=== PATIENT | female | born 1990 | race Caucasian/White ===

== ENCOUNTER → 2017-03-19 | Outpatient (CLI) | payer OTHER ==
[~2017-03-19] MED LIST: PYR50 PO; RMCI INJ
== END | disposition home or self-care (01) ==
LOC: C.MAMM 14:45
PROVIDERS: ATTEND Internal Medicine Gastroenterology
DX: Z79.51 Long term (current) use of inhaled steroids (principal); Z79.52 Long term (current) use of systemic steroids; K50.80 Crohn's disease of both small and large intestine without complications; M25.569 Pain in unspecified knee

== ENCOUNTER 2017-05-13 23:35 | Inpatient (IN) | payer OTHER ==
[~2017-05-13] VITALS: Ht 157.5 cm; Wt 61.2 kg
[2017-05-13] MEDS ORDERED: ONDANSETRON INJ 2 MG/ML 2 ML VIAL IV STA (23:59)
[2017-05-13] MEDS ORDERED: SODIUM CHLORIDE 0.9% 1000ML 1,000 ML IV STA ×2 (23:59)
[2017-05-14 00:20] LABS: BASO % 0.4 %; BASO ABS # 0.04 K/uL (0-0.2); COMPLETE YES; EOS % 3.6 %; HEMATOCRIT 36.2 % (37-47); IG% 0.3 %; LYMPH % 31.7 %; MEAN CELL VOLUME 76.9 fL (80-100); MEAN CORPUSCULAR HEMOGLOBIN 24.4 pg (25-34); MEAN CORPUSCULAR HGB CONC 31.8 g/dl (32-36); MEAN PLATELET VOLUME 10.2 fL (7.4-10.4); MONO % 6.4 %; NEUT % 57.6 %; PLATELET COUNT 421 K/uL (130-400); RED BLOOD COUNT 4.71 M/uL (4.2-5.4); WHITE BLOOD COUNT 10.73 K/uL (4.8-10.8)
[2017-05-14 00:40] LABS: URINE APPEARANCE CLEAR (CLEAR); URINE BILIRUBIN NEG (NEG); URINE COLOR YELLOW; URINE NITRITE NEG (NEG); URINE PH 5.5 (4.5-7.5); URINE SPECIFIC GRAVITY 1.021 (1.000-1.030); UROBILINOGEN NEG (NEG); ZZUR CULT IF INDIC CLEAN CATCH NO
[2017-05-14 00:48] LABS: MANUAL MICROSCOPIC REQUIRED? NO; REVIEW REQ? NO
[2017-05-14] MEDS ORDERED: DICYCLOMINE HCL 20 MG TAB PO STA (00:49)
[2017-05-14 00:52] LABS: ALT/SGPT 29 U/L (12-78); AST/SGOT 20 U/L (15-37); BLOOD UREA NITROGEN 13 mg/dl (7-18); BUN/CREATININE RATIO 21.2 (10-20); CALCIUM 9.4 mg/dl (8.5-10.1); CARBON DIOXIDE 26 mmol/L (21-32); CHLORIDE 105 mmol/L (98-107); CREATININE 0.61 mg/dl (0.60-1.20); GLUCOSE 86 mg/dl (70-99); POTASSIUM 3.7 mmol/L (3.5-5.1); SODIUM 138 mmol/L (136-145)
[2017-05-14 00:55] LABS: ALKALINE PHOSPHATASE 62 U/L (45-117)
--- NOTE | 2017-05-14 01:18 | EMERGENCY ROOM VISIT NOTE ---
History Report prepared by Bassam: Miguel Carpenter Under the Supervision of: Dr. Reji Garcia M.D. First contact with patient: 23:57 Chief Complaint: NAUSEA Stated Complaint: NAUSEA,VOMITING,DIARRHEA History of Present Illness The patient is a 26 year old white female with a past medical history of Crohn' s disease who presents to the ED with a cc of persistent nausea, vomiting and diarrhea beginning a few days ago. She is 5-6 weeks . Positive abdominal pain. Negative black or bloody stool, fevers, chills, or leg swelling. Most recent colonoscopy was a few months ago. Notes that she is high risk for ectopic due to her previous abdominal surgeries. Most recent ultrasound was last week which revealed a gestational sac. On Remicade and Prednisone for her Crohn's disease. This is her third , though the first two were a result of chemical insemination. Denies any falls or trauma. Her LNMP was April 04. Source of History: patient Onset: A few days ago Quality: other (nausea, vomiting and diarrhea) Timing: other (persistent) Associated Symptoms: + abdominal pain, No fevers, No chills, No melena, No hematochezia Note: Negative: leg swelling. Review of Systems See HPI for pertinent positives and negatives. A total of ten systems were reviewed and were otherwise negative. Past Medical & Surgical Medical Problems: (1) Crohn's disease Family History No pertinent family history. Social History Smoking Status: Never Smoker Marital Status: Current/Historical Medications Scheduled Infliximab (Remicade), 1 DOSE INJ q 8 weeks Allergies Coded Allergies: No Known Allergies (Unverified , 05/13/17) Physical Exam Vital Signs Date Time Temp Pulse Resp B/P (MAP) Pulse Ox O2 Delivery O2 Flow Rate FiO2 05/14/17 00:21 74 05/13/17 23:53 37.0 81 18 119/80 100 Room Air Physical Exam GENERAL: Awake, alert, well-appearing, NAD HENT: Normocephalic, atraumatic. EYES: Normal conjunctiva. Sclera non-icteric. NECK: Supple. No nuchal rigidity. FROM. RESPIRATORY: CTAB, no rhonchi, wheezing, crackles CARDIAC: RRR, no MRG ABDOMEN: Soft, NTND, BS+. Trace LLQ TTP. MSK: No chest wall TTP, no LE edema NEURO: GCS 15, CN 2-12 intact, moves all 4s on command SKIN: No rash or jaundice noted. Medical Decision & Procedures Laboratory Results 05/14/17 00:05 Red Blood Count 4.71, Mean Corpuscular Volume 76.9, Mean Corpuscular Hemoglobin 24.4, Mean Corpuscular Hemoglobin Concent 31.8, Mean Platelet Volume 10.2, Neutrophils (%) (Auto) 57.6, Lymphocytes (%) (Auto) 31.7, Monocytes (%) (Auto) 6.4, Eosinophils (%) (Auto) 3.6, Basophils (%) (Auto) 0.4, Neutrophils # (Auto) 6.18, Lymphocytes # (Auto) 3.40, Monocytes # (Auto) 0.69, Eosinophils # (Auto) 0.39, Basophils # (Auto) 0.04 05/14/17 00:05 Test 05/14/17 00:05 05/14/17 00:13 White Blood Count 10.73 K/uL (4.8-10.8) Red Blood Count 4.71 M/uL (4.2-5.4) Hemoglobin 11.5 g/dL (12.0-16.0) Hematocrit 36.2 % (37-47) Mean Corpuscular Volume 76.9 fL (80-100) Mean Corpuscular Hemoglobin 24.4 pg (25-34) Mean Corpuscular Hemoglobin Concent 31.8 g/dl (32-36) Platelet Count 421 K/uL (130-400) Mean Platelet Volume 10.2 fL (7.4-10.4) Neutrophils (%) (Auto) 57.6 % Lymphocytes (%) (Auto) 31.7 % Monocytes (%) (Auto) 6.4 % Eosinophils (%) (Auto) 3.6 % Basophils (%) (Auto) 0.4 % Neutrophils # (Auto) 6.18 K/uL (1.4-6.5) Lymphocytes # (Auto) 3.40 K/uL (1.2-3.4) Monocytes # (Auto) 0.69 K/uL (0.11-0.59) Eosinophils # (Auto) 0.39 K/uL (0-0.5) Basophils # (Auto) 0.04 K/uL (0-0.2) RDW Standard Deviation 42.4 fL (36.4-46.3) RDW Coefficient of Variation 15.0 % (11.5-14.5) Immature Granulocyte % (Auto) 0.3 % Immature Granulocyte # (Auto) 0.03 K/uL (0.00-0.02) Anion Gap 7.0 mmol/L (3-11) Est Creatinine Clear Calc Drug Dose 121.4 ml/min Estimated GFR () 146.0 Estimated GFR (Non- 126.0 BUN/Creatinine Ratio 21.2 (10-20) Calcium Level 9.4 mg/dl (8.5-10.1) Total Bilirubin 0.3 mg/dl (0.2-1) Direct Bilirubin < 0.1 mg/dl (0-0.2) Aspartate Amino Transf (AST/SGOT) 20 U/L (15-37) Alanine Aminotransferase (ALT/SGPT) 29 U/L (12-78) Alkaline Phosphatase 62 U/L (45-117) Total Protein 7.7 gm/dl (6.4-8.2) Albumin 3.8 gm/dl (3.4-5.0) Lipase 2279 U/L (73-393) Human Chorionic Gonadotropin, Quant 5988 mIU/mL Urine Color YELLOW Urine Appearance CLEAR (CLEAR) Urine pH 5.5 (4.5-7.5) Urine Specific [place] 1.021 (1.000-1.030) Urine Protein NEG (NEG) Urine Glucose (UA) NEG (NEG) Urine Ketones NEG (NEG) Urine Occult Blood NEG (NEG) Urine Nitrite NEG (NEG) Urine Bilirubin NEG (NEG) Urine Urobilinogen NEG (NEG) Urine Leukocyte Esterase NEG (NEG) Laboratory results reviewed by me Medications Administered Medications (Trade) Dose Ordered Sig/Renu Route Start Time Stop Time Status Last Admin Dose Admin Sodium Chloride 1,000 ml @ 999 mls/hr Q1H1M STAT IV 05/13/17 23:59 05/14/17 00:59 DC 05/13/17 23:59 999 MLS/HR Ondansetron HCl (Zofran Inj) 4 mg NOW STAT IV 05/13/17 23:59 05/14/17 00:02 DC 05/14/17 00:22 4 MG Sodium Chloride 1,000 ml @ 999 mls/hr Q1H1M STAT IV 05/13/17 23:59 05/14/17 00:59 DC 05/14/17 00:08 999 MLS/HR ED Course 0004: The patient was evaluated in room B10. A complete history and physical exam was performed. 0115: Upon reexamination, the patient was resting comfortably. I discussed the test results and treatment plan with her. The patient will be evaluated for further management. Medical Decision The patient is a 26 year old white female with a past medical history of Crohn' s disease who presents to the ED with a cc of persistent nausea, vomiting and diarrhea beginning a few days ago. Differential diagnosis: Crohn's flare, gastritis, gastroenteritis, hyperemesis gravidarum, sickness in first trimester , pancreatitis, hepatitis, UTI and dehydration. Patient was seen and evaluated at the bedside. Patient had been having decreasing by mouth intake with associated nausea vomiting and diarrhea. Patient does state that she has a history of Crohn's and had a recent colonoscopy which showed some inflammation of the small bowel. Patient is on Remicade infusions. Patient denies any recent travel, antibiotics, sick contacts, stream or well water. Of note patient is 5 weeks 5 days by LMP and . Patient has had 2 other failed pregnancies prior and has been told that she is at high risk for ectopic. Patient did have more localized left lower quadrant tenderness palpation. Denies vaginal bleeding, d/c, or urinary symptoms/LBP. Patient states that she has no blood in her diarrhea. Patient was given antimanic treatment in addition to having a you've a, blood work, and transvaginal ultrasound. Of note patient did have elevated lipase greater than 20/200 without any elevations in LFTs. Patient does not have pain in the right upper quadrant. Patient is no prior history of pancreatitis and denies any alcohol use, recent steroids, or history of gallstones. I spoke with the medicine team who agreed to see the patient. A right upper quadrant ultrasound was ordered at this time. I also did call BILLING ANALYST who agreed to be on as consult given the patient is . Medication Reconcilliation Current Medication List: was personally reviewed by me Blood Pressure Screening Patient's blood pressure: Normal blood pressure Blood pressure disposition: Did not require urgent referral Consults Time Called: 010 Consulting Physician: Dr. Kaelyn DSOUZA Returned Call: 011 Discussed the patient's case. The patient will be evaluated for further treatment and disposition. Additional Consults: Consulted Physician: Dr. Rosenberg - [facility] [place] Primary Impression: Pancreatitis Additional Impressions: First trimester Nausea & vomiting Scribe Attestation The scribe's documentation has been prepared under my direction and personally reviewed by me in its entirety. I confirm that the note above accurately reflects all work, treatment, procedures, and medical decision making performed by me. Departure Information Dispostion Being Evaluated By Hospitalist Referrals No Doctor, Assigned (PCP) Patient Instructions My [facility] Problem Qualifiers Primary Impression: Pancreatitis Chronicity: acute Pancreatitis type: unspecified pancreatitis type Acute pancreatitis complication: unspecified Qualified Codes: K85.90 - Acute pancreatitis without necrosis or infection, unspecified Additional Impressions: Nausea & vomiting Vomiting type: unspecified Vomiting Intractability: non-intractable Qualified Codes: R11.2 - Nausea with vomiting, unspecified
[2017-05-14] MEDS ORDERED: RMCI INJ (01:26)
--- NOTE | 2017-05-14 01:58 | History and Physical ---
History & Physical Date & Time of Service: May 14, 2017 at 01:46 Chief Complaint: Nausea,Vomiting,Diarrhea Primary Care Physician: No Doctor, Assigned History of Present Illness Source: patient, spouse The patient is a pleasant 26 year old female with a history of Crohn's disease and previous colonic resection who presents with. Nausea, vomiting, diarrhea and abdominal pain. Nausea and vomiting started 4-5 days ago. It occurs intermittently at any time during the day. Today, she was unable to keep food down all day today. She reports she has diarrhea at baseline but feels that past 4 days, her stools are getting progressively looser. No blood or mucus in the stool. This is not typical of her flares of Crohn's. Has baseline grade abdominal pain, intermittent in the LLQ, crampy/sharp, comes in waves, 1/10. She assumes the pain is Crohn's related but feels it may be a only a mild flare. She also complains of heartburn and epigastric discomfort pain 4/10, which is new for her and not usually accompanied by her flares of Crohn's Was in the ER in [facility] last week due to pain a worse sharp pain the inguinal area, sharp, /. US done there show intrauterine gestational sac. This pain is now resolved Has a history of 2 previous abdominal surgeries and states she is a high risk for ectopic She denies fevers chills or sweats. Had a good appetite 2 weeks ago but her appetite has been poor for the past week due to increasing nausea. Patients flares typically consist of fatigue, severe lower abdominal pain, nausea/vomiting, high fevers, weight loss. Her current symptoms do not feel like a flare. Has appointment in [address] Sykes. She had an appointment last week with Dr. Roque who follows her Crohn's but she missed it She notes she had a colonoscopy in March, which she notes indicated mild active disease though the location of active disease is unclear. She gets Remicade infusions every 8 weeks, last infusion was in the middle of March. She is unsure of the plan for her Remicade infusions. She reports having taken a home test 2 weeks ago which was positive. Her LMP was April 04. She reports having a chemical in January and since then her periods have been 29 days and 34 days respectively. Prior to that, she had menarche and her periods have been regular 28 day cycles. Past Medical/Surgical History Medical History Crohn's Disease with sequelae Uveitis Eczema Murmur as a child Surgeries - Colon resection in 2005, ascending/transverse 18" - Colon resection in 2011, ascending/transverse 7" Family History Noncontributory Social History Smoking Status: Never Smoker Smokeless Tobacco Use: No Alcohol Use: none Drug Use: none Marital Status: Housing status: lives with significant other Occupational Status: employed Immunizations History of Influenza Vaccine: Unknown History of Tetanus Vaccine?: Unknown History of Pneumococcal: Unknown History of Hepatitis B Vaccine: Unknown Multi-Drug Resistant Organisms History of MDRO: No Allergies Coded Allergies: No Known Allergies (Unverified , 05/13/17) Home Medications Scheduled Infliximab (Remicade), 1 DOSE INJ q 8 weeks Review of Systems A 10 point review of systems was negative unless stated above. Physical Exam Vital Signs Date Time Temp Pulse Resp B/P (MAP) Pulse Ox O2 Delivery O2 Flow Rate FiO2 05/14/17 00:21 74 05/13/17 23:53 37.0 81 18 119/80 100 Room Air General Appearance: WD/WN, no apparent distress Head: normocephalic, atraumatic Eyes: normal inspection, EOMI ENT: hearing grossly normal, pharynx normal Neck: supple, no adenopathy, no JVD Respiratory/Chest: lungs clear, no respiratory distress Cardiovascular: regular rate, rhythm, no gallop, no murmur Abdomen/GI: soft, no organomegaly, + pertinent finding (tender in the LLQ and left anterior abdomen without guarding or rigidity; 2 well healed surgical scars ) Back: no CVA tenderness, no muscle spasm Extremities/Musculoskelatal: no calf tenderness, no pedal edema Neurologic/Psych: alert, normal mood/affect, oriented x 3 Skin: normal color, warm/dry, no rash Lymphatic: no adenopathy Diagnostics Laboratory Results Results Past 24 Hours Test 05/14/17 00:05 05/14/17 00:13 Range/Units White Blood Count 10.73 4.8-10.8 K/uL Red Blood Count 4.71 4.2-5.4 M/uL Hemoglobin 11.5 12.0-16.0 g/dL Hematocrit 36.2 37-47 % Mean Corpuscular Volume 76.9 80-100 fL Mean Corpuscular Hemoglobin 24.4 25-34 pg Mean Corpuscular Hemoglobin Concent 31.8 32-36 g/dl Platelet Count 421 130-400 K/uL Mean Platelet Volume 10.2 7.4-10.4 fL Neutrophils (%) (Auto) 57.6 % Lymphocytes (%) (Auto) 31.7 % Monocytes (%) (Auto) 6.4 % Eosinophils (%) (Auto) 3.6 % Basophils (%) (Auto) 0.4 % Neutrophils # (Auto) 6.18 1.4-6.5 K/uL Lymphocytes # (Auto) 3.40 1.2-3.4 K/uL Monocytes # (Auto) 0.69 0.11-0.59 K/uL Eosinophils # (Auto) 0.39 0-0.5 K/uL Basophils # (Auto) 0.04 0-0.2 K/uL RDW Standard Deviation 42.4 36.4-46.3 fL RDW Coefficient of Variation 15.0 11.5-14.5 % Immature Granulocyte % (Auto) 0.3 % Immature Granulocyte # (Auto) 0.03 0.00-0.02 K/uL Sodium Level 138 136-145 mmol/L Potassium Level 3.7 3.5-5.1 mmol/L Chloride Level 105 98-107 mmol/L Carbon Dioxide Level 26 21-32 mmol/L Anion Gap 7.0 3-11 mmol/L Blood Urea Nitrogen 13 7-18 mg/dl Creatinine 0.61 0.60-1.20 mg/dl Est Creatinine Clear Calc Drug Dose 121.4 ml/min Estimated GFR () 146.0 Estimated GFR (Non- 126.0 BUN/Creatinine Ratio 21.2 10-20 Random Glucose 86 70-99 mg/dl Calcium Level 9.4 8.5-10.1 mg/dl Total Bilirubin 0.3 0.2-1 mg/dl Direct Bilirubin < 0.1 0-0.2 mg/dl Aspartate Amino Transf (AST/SGOT) 20 15-37 U/L Alanine Aminotransferase (ALT/SGPT) 29 12-78 U/L Alkaline Phosphatase 62 45-117 U/L Total Protein 7.7 6.4-8.2 gm/dl Albumin 3.8 3.4-5.0 gm/dl Lipase 2279 73-393 U/L Human Chorionic Gonadotropin, Quant 5988 mIU/mL Urine Color YELLOW Urine Appearance CLEAR CLEAR Urine pH 5.5 4.5-7.5 Urine Specific [place] 1.021 1.000-1.030 Urine Protein NEG NEG Urine Glucose (UA) NEG NEG Urine Ketones NEG NEG Urine Occult Blood NEG NEG Urine Nitrite NEG NEG Urine Bilirubin NEG NEG Urine Urobilinogen NEG NEG Urine Leukocyte Esterase NEG NEG Impression Assessment and Plan 26 year old female, at estimated 5 weeks gestation based on quantitative beta HCG in the ED, who presents with nausea/vomiting and abdominal discomfort. Lipase in the ED was elevated. No CT scan has been due risk of exposure to fetus. Patient has a history of Crohn's with colectomy. Our plan for her is as follows Nausea/Vomiting Abdominal pain - DDx: Acute Crohn's exacerbation, gastro-enteritis, ectopic , pancreatitis - Lipase elevated; no CT scan abdomen done to limit radiation exposure to fetus - Zofran given in the ED; will try alternate modality at this time Pyridoxine 25 mg TID PRN Diclectin not available in the hospital - Complete abdomen ultrasound with attention to pancreas and RUQ - Tylenol 650 mg q 6 h PRN pain; avoid opiates - NSS + 20 KCl at 100 ml/hr - NPO First Trimester - High risk due to history of autoimmune disease, and previous intra-abdominal surgery - Consult cardiology clinical consultant in the setting of acute presumed pancreatitis - Dating U/S pending History of Crohn's Disease - Check inflammatory markers as marker of active disease - Patient is only on Remicade infusions - Consult GI for further recommendations DVT Prophylaxis - SCD Knee, DESHAWN Hose Code Status - Level I Full Code Disposition - Med/Surg Attending Addendum: I have physically seen and examined this patient, have directed the resident's medical activities, and agree with the H&P as noted above with the following exceptions as noted. The patient is awake, alert and oriented 3, well-developed and well-nourished , normocephalic and atraumatic, lying in bed and in no acute distress. HEENT--PERRL, EOMI, mucous membranes and oropharynx dry. Neck--supple, no JVD or bruits, thyroid normal, trachea midline, no adenopathy. Heart--normal S1 and S2, no extra beats, no murmurs, rubs or gallops. Lungs--clear bilaterally with good air movement, no respiratory distress, no accessory muscle use. Abdomen--normal bowel sounds and soft. Tender left lower quadrant abdomen. Nondistended, no hernias or masses, no organomegaly. Extremities--no cyanosis, clubbing or edema. There are good distal pulses b/l. Dermatologic--normal skin turgor, normal color, warm and dry, no abnormal lymph nodes, no rash. Neurologic--cranial nerves II through XII grossly intact. Rheumatologic--normal range of motion, nontender, muscles and joints. Psychiatric--normal affect. Assessment and Plan: Nausea/vomiting/abdominal pain/first trimester -- Admit to the women and children's service. Order general abdominal ultrasound and ultrasound. Elevated lipase with differential including pancreatitis, Crohn's flare and ectopic . Normal saline with KCl 20 mEq at 100 mils per hour. For now nothing by mouth. Consult REPAIR E[employer]SEMBLER Dr. Rosenberg, who is covering for Dr. Sykes. History of Crohn's disease-- Consult her surgical dressing maker Dr. Roque.. She is on Remicade IV infusion as an outpatient setting. Level of Care Med/Surg Advanced Directives Existing Advance Directive: No Existing Living Will: No Existing Power of Medical Representative: No Resuscitation Status FULL RESUSCITATION VTE Prophylaxis Risk Level: Moderate Given or contraindicated: Ale Tyler, SCD's Social Service Consult None Apply
[2017-05-14] MEDS ORDERED: ACETAMINOPHEN 325 MG TAB PO PRN (02:30)
[2017-05-14] MEDS ORDERED: MAGNESIUM HYDROXIDE SUSP 30 ML UDC PO PRN (02:30)
[2017-05-14] MEDS ORDERED: ALUMINUM/MAGNESIUM/SIMETH (MAALOX MAX) 30 ML UDC PO PRN (02:30)
[2017-05-14 03:32] VITALS: BP 98/60; PULSE 76; TEMP 37.1; O2SAT 99; Ht 157.5 cm; Wt 61.2 kg
[2017-05-14] MEDS ORDERED: PYRIDOXINE HCL 50 MG TAB PO ONE (03:43)
[2017-05-14] MEDS ORDERED: PYRIDOXINE HCL 50 MG TAB PO PRN (03:45)
[2017-05-14] MEDS: NSS + 20MEQ KCL 1000ML 1,000 ML IV SCH ×3 (03:48→23:00)
[2017-05-14] MEDS: ACETAMINOPHEN IV 650 MG in EMPTY BAG 0 ML IV PRN ×2 (05:40→22:20)
--- NOTE | 2017-05-14 07:15 | DIAGNOSTIC IMAGING REPORT ---
<14 WKS SINGLE HISTORY: 26 years-old Female n/v/d, undocumented prior , h/o crohn's acute nausea and vomiting with COMPARISON: None available TECHNIQUE: Multiple real-time sonographic images of the pelvic structures were obtained transabdominally and transvaginally assessing grayscale appearance, color and spectral analysis FINDINGS: TRANSABDOMINAL: Anteflexed uterus measures 8.3 x 3.4 x 6.3 cm. There is a fluid collection in the endometrium, 0.7 cm. Right ovary measures 3.7 x 2.4 x 3.7 cm. Within the right ovary there is a cystic lesion measuring 2.0 x 1.9 x 2.0 cm. Arterial inflow is documented within the right ovary. Left ovary measures 4.0 x 1.8 x 2.0 cm with arterial inflow documented and is unremarkable. TRANSVAGINAL: Anteflexed uterus measures 7.8 x 3.9 x 5.8 cm. Gestational sac with surrounding decidual reaction is noted within the endometrium, 0.7 cm with yolk sac measuring 0.17 cm. No pole is identified at this time. The right ovary measures 2.7 x 3.7 x 3.37 m. Within the right ovary there is a cystic structure again noted as described above without internal vascularity. Arterial inflow is seen within the right ovary. IMPRESSION: 1. Intrauterine gestational sac and yolk sac are seen without pole at this time. Findings may reflect early normal gestation, recent spontaneous or anembryonic gestation . Close follow-up with serial quantitative beta hCG analysis and ultrasound imaging is needed to document viability. 2. Probable corpus luteal cyst of the right ovary, 2.0 cm. No evidence of ovarian torsion. 3. Normal sonographic appearance of the left ovary. The above report was generated using voice recognition software. It may contain grammatical, syntax or spelling errors. Electronically signed by: Gerard Andino M.D. 05/14/2017 7:14 AM Dictated Date/Time: 05/14/2017 7:09 AM
--- NOTE | 2017-05-14 07:18 | DIAGNOSTIC IMAGING REPORT ---
ABDOMEN COMPLETE (US) CLINICAL HISTORY: 26 years-old Female presenting with elevated Lipase; attention to RUQ; pancreas. TECHNIQUE: Real-time grayscale and limited color Doppler ultrasound imaging of the abdomen was performed. COMPARISON: None. FINDINGS: Pancreas: Visualized portions of the pancreatic head and body within normal limits. Liver: Mildly hyperechogenic parenchyma, although the right hemidiaphragm remains visible, likely indicating mild steatosis. The liver measures 17 cm in maximal sagittal dimension. Main portal vein patent with normal directional flow. Biliary: No intrahepatic biliary ductal dilatation. Common bile duct measures up to 3 mm in diameter. Gallbladder: Contracted. No evidence of gallstones, gallbladder wall thickening, or pericholecystic fluid. Spleen: Normal in echogenicity and size, measuring 12 cm in length. Kidneys: Normal in size and echogenicity. Right kidney measures 11.4 cm, and left kidney measures 11.7 cm. No hydronephrosis. Vasculature: Visualized portions of the IVC and abdominal aorta normal. Ascites: None. IMPRESSION: Suggestion of mild hepatic steatosis. Otherwise normal right upper quadrant ultrasound. Electronically signed by: Zackary Lafleur M.D. 05/14/2017 7:17 AM Dictated Date/Time: 05/14/2017 7:15 AM
[2017-05-14 07:48] VITALS: BP 96/56; PULSE 76; TEMP 36.9; O2SAT 100
--- NOTE | 2017-05-14 08:46 | GYNECOLOGICAL CONSULTATION ---
DATE OF CONSULTATION: 05/14/2017 REASON FOR CONSULTATION: Early in the setting of elevated lipase. CONSULTING GROUP: [facility]. HISTORY OF PRESENT ILLNESS: The patient is a 26-year-old white female 2, para 0, 0-1-0 with a last menstrual period of 04/04/2017. The patient has a known history of Crohn's disease with previous laparoscopic colon resection x2, who presented to the Emergency Department with nausea, vomiting, diarrhea and abdominal pain. She knows that she is . [place], had some groin pain and went to the Emergency Department because of concern for possible ectopic given her previous history. She notes that her quant was 660 at that time and that she had an ultrasound showing sac in her uterus. The patient was evaluated in the Emergency Department and found to have a lipase of 2279 and so was admitted for nausea, vomiting, diarrhea, history of Crohn's disease and elevated lipase. We are consulted because of the early . The patient notes no vaginal bleeding or unusual discharge. She notes no specific abdominal pelvic cramping just generalized abdominal cramping. She notes that she had a chemical in January 2017. She notes prior to this her periods were every 28 days, but after this, her periods were irregular every 29-34 days. She notes no significant gynecologic history, notes regular Pap smears that are normal, and notes no history of sexually transmitted diseases. ALLERGIES: No known drug allergies. MEDICATIONS: At home includes: Remicade, which she received by injection every 8 weeks. She has a history of being on prednisone, but denies any currently. She tried to take a vitamin, but this caused her liquids stool. No other medications at home. PAST MEDICAL HISTORY: Significant for Crohn's disease with complications of uveitis and eczema. She has a history of a heart murmur not requiring prophylactic antibiotics. She denies thyroid disease, asthma, heart disease, diabetes, kidney or liver problems. PAST SURGICAL HISTORY: Includes laparoscopic bowel resection x2, once in 2001 and once in 2005. She denies other surgeries. FAMILY HISTORY: Mother has known antiphospholipid antibody syndrome with a history of a stillbirth at 9 months and multiple miscarriages. She also has polycythemia vera. There is no other family history of Crohn's disease in the family. SOCIAL HISTORY: The patient denies tobacco, alcohol or drug use. Lives with her spouse and just recently moved to [facility]. She does have an appointment in the OB office in about 2 weeks. PHYSICAL EXAMINATION: GENERAL: This is a well-developed, well-nourished white female resting in her hospital bed. She does not appear uncomfortable. VITAL SIGNS: Temperature 36.9, blood pressure 96/56, pulse 76, respirations 16. NEUROLOGIC: She is alert and oriented x3. The rest of her exam is deferred as she is asymptomatic from a gynecologic standpoint. IMAGING DATA: ultrasound reveals an intrauterine and a yolk sac is noted within the but no pole is noted. There is a probable corpus luteum cyst on the right. LABORATORY DATA: Hemoglobin 11.5, hematocrit 36.2, platelet count of 421,000. Chemistry is normal except for a lipase of 2279, quant is 5988 (appropriate rise from 660 noted last Sunday). Urine is negative. ASSESSMENT: Zoe is a 26-year-old white female 2, para 0-0-1-0 with an intrauterine at 5-5/7 weeks. She does have a tendency to have long cycles so she may not be as as that. Per the patient reports, she had an ultrasound in another state showing a gestational sac and today, she has an ultrasound showing a gestational sac with a yolk sac. This would be appropriate progression of the . It may yet still be too early for the appearance of an embryo. We would recommend an ultrasound to 7-10 days to look for an embryo. She is currently asymptomatic as far as her is concerned, although some of her nausea and vomiting may be contributed to by nausea and vomiting associated with . We would treat that based on your best available evidence considering Phenergan as a first line with Zofran as a second line if not resolved with Phenergan. Crohn's disease: The patient is Dr. Roque. She has established with him. His office should be notified as soon as possible that she is to make a decision about continued Remicade. Remicade is a class B biologic and so would be appropriate in if needed. It does cross the placenta though, so recommendations to consider discontinuing the drug at 30 weeks so that the fetus has time to resolve this medication from its system. If she remains on it throughout the , consideration needs to be given to avoiding live virus vaccines for the first 6 months of life. The patient has been on prednisone in the past. If she needs prednisone for this process, the lowest effective dose should be used. There is some inconsistent data that prednisone used in the first trimester may be associated with oral clutching, the patient was made aware of this, although the evidence is sparse not consistent. Pain management: Given the patient's , nonsteroidal anti-inflammatories should be avoided, so Tylenol and/or narcotic pain medications would be appropriate. We would be happy to see this patient if she has a associated complications; otherwise, she has scheduled OB appointments already in our office which she should keep if at all possible. Once she is discharged, she should call our office to schedule a viability ultrasound in 7-10 days from a previous one. If you have any questions about medication, please do not hesitate to call us, otherwise we will follow her up on an outpatient basis.
[2017-05-14 08:53] LABS: BASO % 0.4 %; BASO ABS # 0.04 K/uL (0-0.2); COMPLETE YES; HEMATOCRIT 31.5 % (37-47); IG% 0.2 %; LYMPH ABS # 3.28 K/uL (1.2-3.4); MEAN CELL VOLUME 76.6 fL (80-100); MEAN CORPUSCULAR HEMOGLOBIN 23.8 pg (25-34); MEAN CORPUSCULAR HGB CONC 31.1 g/dl (32-36); MEAN PLATELET VOLUME 10.1 fL (7.4-10.4); MONO % 8.7 %; NEUT % 50.7 %; PLATELET COUNT 341 K/uL (130-400); RED BLOOD COUNT 4.11 M/uL (4.2-5.4)
[2017-05-14 09:22] LABS: ALT/SGPT 23 U/L (12-78); BLOOD UREA NITROGEN 7 mg/dl (7-18); BUN/CREATININE RATIO 13.7 (10-20); CALCIUM 8.6 mg/dl (8.5-10.1); CARBON DIOXIDE 21 mmol/L (21-32); CHLORIDE 110 mmol/L (98-107); CREATININE 0.54 mg/dl (0.60-1.20); GLUCOSE 78 mg/dl (70-99); POTASSIUM 3.7 mmol/L (3.5-5.1); SODIUM 139 mmol/L (136-145)
[2017-05-14 09:24] LABS: ALKALINE PHOSPHATASE 46 U/L (45-117); AST/SGOT 16 U/L (15-37)
[2017-05-14 11:40] VITALS: BP 96/54; PULSE 71; TEMP 37; O2SAT 99
[2017-05-14] MEDS ORDERED: PROMETHAZINE HCL INJ 25 MG in SODIUM CHLORIDE 0.9% 50ML 50 ML IV PRN (14:15)
[2017-05-14 15:30] VITALS: BP 99/57; PULSE 75; TEMP 37; O2SAT 100
--- NOTE | 2017-05-14 16:50 | Family Medicine Progress Note ---
Progress Note Date of Service May 14, 2017. Subjective Pt evaluation today including: conversation w/ patient, physical exam, chart review, lab review The patient was seen and examined at bedside. No acute overnight events. Patient is resting comfortably in bed. Pt continues to have intermittent abdominal pain. Pt is NPO with her IV drip running. Additional history: Pt has never had lipase elevation on previous crohn's flare' s. Pt does drink alcohol, smoke or have a history of gallstones. Plan of care was described to the patient and all questions were answered. Constitutional: No fever, No chills, No sweats Respiratory: No cough, No sputum, No wheezing, No shortness of breath Cardiovascular: No chest pain Abdomen: + pain, + nausea, + diarrhea, No vomiting, No constipation Female : No dysuria, No hematuria, No incontinence Psychiatric: No depression symptoms Skin: No rash Objective Physical Exam General Appearance: WD/WN, no apparent distress, + thin Eyes: PERRL, EOMI Neck: supple, no adenopathy, thyroid normal, no JVD Respiratory/Chest: chest non-tender, lungs clear, normal breath sounds, no respiratory distress, no accessory muscle use Cardiovascular: regular rate, rhythm, no edema, no gallop, no JVD, no murmur Abdomen: normal bowel sounds, non tender, soft, no organomegaly, no pulsatile mass Extremities: normal range of motion, non-tender, normal inspection, no pedal edema, no calf tenderness Neurologic/Psychiatric: no motor/sensory deficits, alert, normal mood/affect, oriented x 3 Skin: no rash Assessment and Plan 26Female with a PMHx of Crohn's disease w colectomy and currently (GA at 5 weeks by LMP) p/w nausea/vomiting and abdominal discomfort. Lipase was elevated in the ED. Abdominal and Pelvis US found a yolk salk (normal for dates ) and no significant pathology of the liver, ovaries, common bile duct or pancreas. Lipase was downtrending. Pt was hungry and started on a clear liquid diet in the PM of 05/14. SYSTEM ANALYST has provided excellent recommendations regarding steroid use and pain control. We are awaiting GI input. Nausea/Vomiting Abdominal pain - DDx: Acute Crohn's exacerbation, gastro-enteritis, pancreatitis. - Zofran given in the ED; will try alternate modality at this time Pyridoxine 25 mg TID PRN Diclectin not available in the hospital - Complete abdomen ultrasound with attention to pancreas and RUQ - Tylenol 650 mg q 6 h PRN pain; at present well controlled, if worsens consider low dose opiates. - NSS + 20 KCl at 100 ml/hr - Clear liquid diet and NPO at midnight. - Fasting Lipid Panel, CBC, CMP in the AM. First Trimester - High risk due to history of autoimmune disease, and previous intra-abdominal surgery - OBGYN has provided excellent input, thus far normal , pt has already arranged her first appointment with Dr. Sykes. History of Crohn's Disease - ESR WNL. Pt has never had lipase elevation on previous flare's. Pt does drink alcohol, smoke or have a history of gallstones. - Patient is only on Remicade infusions - per OBGYN she may wish to stop this after 30weeks GA. - Awaiting GI input. DVT Prophylaxis - SCD Knee, DESHAWN Hose Disposition - Med/Surg FULL CODE Resident Involvement: Resident Care Provided Care Provided: Adult Hospital Medicine
[2017-05-14 19:14] LABS: TOTAL IRON BINDING CAPACITY 363 mcg/dl (250-450); TRIGLYCERIDES 81 mg/dl (0-150)
[2017-05-14 19:35] VITALS: BP 112/64; PULSE 74; TEMP 37; O2SAT 97
[2017-05-14 23:05] VITALS: BP 106/61; PULSE 77; TEMP 37.2; O2SAT 100
--- NOTE | 2017-05-14 23:26 | GASTROINTESTINAL CONSULTATION ---
DATE OF CONSULTATION: 05/14/2017 REASON FOR EVALUATION: Crohn's disease, elevated lipase. HISTORY OF PRESENT ILLNESS: The patient is a 26-year-old with Crohn's disease since she was 10 years old, diagnosed in 2000 when she presented with weight loss, diarrhea, nausea, and fatigue. She has had extensive disease involving the stomach, small bowel, colon, and some perianal skin tags. She has also had extraintestinal manifestations including uveitis, and erythema nodosum. She has been treated with steroids and TPN in the past. She developed some complications with sepsis and developed bowel obstructions requiring resection of both transverse and left colon. Since 2005, she has been on Remicade and is currently getting 5 mg/kg every 6 weeks. Her next dose is due in about 2 weeks. The patient is currently about 5 weeks and presents with some abdominal pain, fatigue, and nausea. Since being hospitalized, she had an abdominal ultrasound and ultrasound. The abdominal ultrasound just shows a little bit of fatty liver, but no evidence of any pancreatic, biliary or gallbladder pathology. Her lipase was elevated in the 2000 range and then dropped about 1500. She has had no epigastric pain or pain radiating into the back. Her sed rate and C-reactive protein are both normal. She has had no significant diarrhea or change in bowels. She is slightly anemic with microcytic indices suggesting possible iron deficiency. Her calcium was normal. MEDICATIONS: She is on no other medications other than Remicade at this time. PAST MEDICAL HISTORY: Remarkable for Crohn's disease with resection and with 2 of her wisdom teeth removed from her lower jaw. ALLERGIES: None. FAMILY HISTORY: Father has Crohn's disease and diabetes. Mother has polycythemia vera. She has 2 brothers and a sister, all healthy. SOCIAL HISTORY: The patient is . 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 No tobacco, no recreational drugs. REVIEW OF SYSTEMS: Positive for a little bit of nausea. PHYSICAL EXAMINATION: GENERAL: The patient appears awake, alert, in no acute distress. VITAL SIGNS: Normal. She is afebrile. ABDOMEN: Soft. There are no masses, tenderness, or hepatosplenomegaly. IMPRESSION: The patient has an elevated lipase, but no pain pattern or ultrasound imaging to suggest acute pancreatitis. She also has normal inflammatory markers indicating that it is unlikely she has active Crohn's disease at this time. Her nausea may be related to her early . I recommend getting triglyceride level and an GLORIA to rule out other potential causes of pancreatitis. We will also get an iron level and if it is low, she may require IV iron. She will be on clear liquids now and if she does well, we can advance her diet and if she does well, we can hopefully get her home tomorrow.
[2017-05-15 04:00] VITALS: BP 99/59; PULSE 77; TEMP 36.8; O2SAT 100
[2017-05-15 07:20] VITALS: BP 90/51; PULSE 74; TEMP 37.1; O2SAT 99
[2017-05-15 07:49] LABS: BASO % 0.5 %; BASO ABS # 0.06 K/uL (0-0.2); COMPLETE YES; EOS % 3.8 %; HEMATOCRIT 31.8 % (37-47); IG% 0.2 %; LYMPH % 29.4 %; LYMPH ABS # 3.21 K/uL (1.2-3.4); MEAN CELL VOLUME 77.4 fL (80-100); MEAN CORPUSCULAR HEMOGLOBIN 24.3 pg (25-34); MEAN CORPUSCULAR HGB CONC 31.4 g/dl (32-36); MEAN PLATELET VOLUME 10.6 fL (7.4-10.4); MONO % 9.7 %; NEUT % 56.4 %; PLATELET COUNT 360 K/uL (130-400); RED BLOOD COUNT 4.11 M/uL (4.2-5.4); WHITE BLOOD COUNT 10.92 K/uL (4.8-10.8)
[2017-05-15 08:19] LABS: ALB/GLOB RATIO 0.9 (0.9-2); BUN/CREATININE RATIO 22.3 (10-20); CALCIUM 8.5 mg/dl (8.5-10.1); CHOLESTEROL/HDL RATIO 3.4; CREATININE 0.57 mg/dl (0.60-1.20)
[2017-05-15 11:30] VITALS: BP 103/54; PULSE 67; TEMP 37.1; O2SAT 100
[2017-05-15] MEDS ORDERED: PYR50 PO (11:51)
--- NOTE | 2017-05-15 12:00 | Discharge Instructions ---
Discharge Instructions Date of Service May 15, 2017. Admission Reason for Admission: Elevated Lipase Discharge Discharge Diagnosis / Problem: Abdominal Pain Discharge Goals Goal(s): Decrease discomfort, Improve function, Increase independence, Improve disease control, Improve nutritional status, Learn about illness Activity Recommendations Activity Limitations: per Instructions/Follow-up section . Instructions / Follow-Up Instructions / Follow-Up Please keep your regularly schedule Obstetrical visit in May with Dr. Sykes. Please keep your regularly scheduled visit with your Alfalfa Dehydrator Operator Dr. Roque. We do not think your abdominal pain is a Crohn's flare. Try to take your Vitamins as much as possible. If you cannot tolerate your vitamins you should try to take Vitamin B12 and Folic Acid supplements. Your folic acid levels and B12 were drawn just prior to discharge, you should be able to follow up these levels on at your Primary Care Visit in the next 1-2 weeks. A primary care appointment will be set up for you at [address] [place] [address]. Please keep this appointment. Your iron levels were normal, there was one iron level (ferritin) pending on discharge. You should follow up with your PCP regarding a low MCV value - this means that your red blood cells are smaller than normal. This may or may not be related to your family history (mother) of polycythemia vera. We are prescribing Vitamin B6 for Nausea. Please take this medication as instructed on the prescription. Return to the ER if you experience vomiting, nausea, intractable abdominal pain and are unable to hold down solids or liquids. Current Hospital Diet Patient's current hospital diet: Kosher Diet, Regular Diet Discharge Diet Recommended Diet: Regular Diet Pending Studies Studies pending at discharge: yes List of pending studies: Vitamin B12, Folic Acid Level, Ferritin Level, GLORIA Laboratory Results Lipid Panel Test 05/15/17 07:19 Range/Units Triglycerides Level 90 0-150 mg/dl Cholesterol Level 134 0-200 mg/dl HDL Cholesterol 40 mg/dl Cholesterol/HDL Ratio 3.4 LDL Cholesterol, Calculated 76 mg/dl Medical Emergencies . Who to Call and When: Medical Emergencies: If at any time you feel your situation is an emergency, please call 911 immediately. . Non-Emergent Contact Non-Emergency issues call your: Primary Care Provider, Alfalfa Dehydrator Operator, Specialist (obgyn) . . "Provider Documentation" section prepared by Brijesh Becker. . VTE Core Measure Inpt VTE Proph given/why not?: GANGA Roberts's Resident Involvement: Resident Care Provided Care Provided: Adult [facility] Medicine
--- NOTE | 2017-05-15 12:05 | Discharge Summary ---
Discharge Summary Date of Service May 15, 2017. Discharge Summary Admission Date: May 14, 2017 at 02:24 Discharge Date: May 15, 2017 Discharge Disposition: Home Principal Diagnosis: Abdominal Pain of unknown origin Immunizations: Have You Had Influenza Vaccine: Unknown History of Tetanus Vaccine?: Unknown History of Pneumococcal: Unknown History of Hepatitis B Vaccine: Unknown Procedures: ABDOMEN COMPLETE (US) CLINICAL HISTORY: 26 years-old Female presenting with elevated Lipase; attention to RUQ; pancreas. TECHNIQUE: Real-time grayscale and limited color Doppler ultrasound imaging of the abdomen was performed. COMPARISON: None. FINDINGS: Pancreas: Visualized portions of the pancreatic head and body within normal limits. Liver: Mildly hyperechogenic parenchyma, although the right hemidiaphragm remains visible, likely indicating mild steatosis. The liver measures 17 cm in maximal sagittal dimension. Main portal vein patent with normal directional flow. Biliary: No intrahepatic biliary ductal dilatation. Common bile duct measures up to 3 mm in diameter. Gallbladder: Contracted. No evidence of gallstones, gallbladder wall thickening, or pericholecystic fluid. Spleen: Normal in echogenicity and size, measuring 12 cm in length. Kidneys: Normal in size and echogenicity. Right kidney measures 11.4 cm, and left kidney measures 11.7 cm. No hydronephrosis. Vasculature: Visualized portions of the IVC and abdominal aorta normal. Ascites: None. IMPRESSION: Suggestion of mild hepatic steatosis. Otherwise normal right upper quadrant ultrasound. <14 WKS SINGLE HISTORY: 26 years-old Female n/v/d, undocumented prior , h/o crohn's acute nausea and vomiting with COMPARISON: None available TECHNIQUE: Multiple real-time sonographic images of the pelvic structures were obtained transabdominally and transvaginally assessing grayscale appearance, color and spectral analysis FINDINGS: TRANSABDOMINAL: Anteflexed uterus measures 8.3 x 3.4 x 6.3 cm. There is a fluid collection in the endometrium, 0.7 cm. Right ovary measures 3.7 x 2.4 x 3.7 cm. Within the right ovary there is a cystic lesion measuring 2.0 x 1.9 x 2.0 cm. Arterial inflow is documented within the right ovary. Left ovary measures 4.0 x 1.8 x 2.0 cm with arterial inflow documented and is unremarkable. TRANSVAGINAL: Anteflexed uterus measures 7.8 x 3.9 x 5.8 cm. Gestational sac with surrounding decidual reaction is noted within the endometrium, 0.7 cm with yolk sac measuring 0.17 cm. No pole is identified at this time. The right ovary measures 2.7 x 3.7 x 3.37 m. Within the right ovary there is a cystic structure again noted as described above without internal vascularity. Arterial inflow is seen within the right ovary. IMPRESSION: 1. Intrauterine gestational sac and yolk sac are seen without pole at this time. Findings may reflect early normal gestation, recent spontaneous or anembryonic gestation . Close follow-up with serial quantitative beta hCG analysis and ultrasound imaging is needed to document viability. 2. Probable corpus luteal cyst of the right ovary, 2.0 cm. No evidence of ovarian torsion. 3. Normal sonographic appearance of the left ovary. Consultations: OBGYN - signed off, normal GI - unlikely crohns, unlikely acute pancreatitis (GLORIA pending) Medication Reconciliation New Medications: Pyridoxine HCl (Vitamin B-6) 50 Mg Tab 25 MG PO TID PRN for nausea for 30 Days, #45 TAB Continued Medications: Infliximab (Remicade) 100 Mg/10 Ml Inj 1 DOSE INJ q 8 weeks 5mg per kg Discharge Exam The patient was seen and examined at bedside. No acute overnight events. Patient is resting comfortably in bed. Pt is tolerating her diet well. Plan of care was described to the patient and all questions were answered. Constitutional: No fever, No chills, No sweats Respiratory: No cough, No sputum, No wheezing, No shortness of breath Cardiovascular: No chest pain Abdomen: improved pain from yesterday, non tender to deep palpation in all quadrants, No vomiting, No constipation Female : No dysuria, No hematuria, No incontinence Psychiatric: No depression symptoms Skin: No rash Physical Exam General Appearance: WD/WN, no apparent distress, + thin Eyes: PERRL, EOMI Neck: supple, no adenopathy, thyroid normal, no JVD Respiratory/Chest: chest non-tender, lungs clear, normal breath sounds, no respiratory distress, no accessory muscle use Cardiovascular: regular rate, rhythm, no edema, no gallop, no JVD, no murmur Abdomen: normal bowel sounds, non tender, soft, no organomegaly, no pulsatile mass Extremities: normal range of motion, non-tender, normal inspection, no pedal edema, no calf tenderness Neurologic/Psychiatric: no motor/sensory deficits, alert, normal mood/affect, oriented x 3 Skin: no rash Hospital Course 26F with a PMHx of Crohn's disease w colectomy and currently (GA at 5 weeks by LMP) p/w nausea/vomiting and abdominal discomfort. Lipase was elevated in the ED. Abdominal and Pelvis US found a yolk salk (normal for dates ) and no significant pathology of the liver, ovaries, common bile duct or pancreas. Lipase was downtrending. Pt was hungry and started on a clear liquid diet in the PM of 05/14 and tolerated a full diet on 05/15. RETAIL GREETER has provided excellent recommendations regarding steroid use and pain control. GI states that this is unlikely a Crohn's flare with a normal ESR. Triglycerides were mostly normal, no evidence of gallstones and the patient denies any alcohol history. There is no concrete explanation for the elevated lipase. Patient was discharged in good condition and will follow up with her regular OB and GI appointments. Follow up with the PCP was recommend to evaluate the patient's low MCV with a family history in her mom of Polycythemia Vera. Patient was told in the past that her iron levels were low. Her transferrin and TIB were normal in hospital. B12, Folate, Ferritin and GLORIA studies were pending on discharge. Patient was discharged on Pyridoxine 25mg TID PRN Nausea x 30 pills. Total Time Spent: Greater than 30 minutes (43 min) This includes examination of the patient, discharge planning, medication reconciliation, and communication with other providers. Discharge Instructions Please refer to the electronic Patient Visit Report (Discharge Instructions) for additional information. Follow-Up OBGYN at regularly scheduled appointment. GI Dr. Roque at regularly scheduled appointment. Primary care provider within 1-2 weeks. Additional Copies To Navjot Sykes M.D.; Jose Raul Roque M.D.; Brijesh Becker M.D. Resident Involvement: Resident Care Provided Care Provided: [facility] Medicine
[2017-05-15 12:07] VITALS: BP 103/54; PULSE 67; TEMP 37.1; O2SAT 100
== END 2017-05-15 12:32 | disposition home or self-care (01) | DRG 781 ==
LOC: C.EDB 23:36 → C.MS4N 05-14 02:24 → EDBEDREQ 05-14 02:39 → ENRESERV 05-14 02:44
PROVIDERS: ADMIT Student in an Organized Health Care Education/Training Program; ATTEND Hospitalist
DX: O21.1 Hyperemesis gravidarum with metabolic disturbance (principal); O99.89 Other specified diseases and conditions complicating pregnancy, childbirth and the puerperium; Z3A.01 Less than 8 weeks gestation of pregnancy; R10.9 Unspecified abdominal pain

== ENCOUNTER → 2017-05-29 | Outpatient (CLI) | payer OTHER ==
[2017-05-29 11:18] LABS: URINE APPEARANCE CLEAR (CLEAR); URINE BILIRUBIN NEG (NEG); URINE COLOR YELLOW; URINE EPITHELIAL CELL AUTO >30 /lpf (0-5); URINE NITRITE NEG (NEG); URINE SPECIFIC GRAVITY 1.028 (1.000-1.030); UROBILINOGEN NEG (NEG)
[2017-05-29 11:20] LABS: MANUAL MICROSCOPIC REQUIRED? NO; REVIEW REQ? YES
== END | disposition home or self-care (01) ==
LOC: C.LABSPEC 10:54
PROVIDERS: ATTEND Obstetrics & Gynecology
DX: O99.011 Anemia complicating pregnancy, first trimester (principal); D64.9 Anemia, unspecified; Z3A.00 Weeks of gestation of pregnancy not specified

== ENCOUNTER → 2017-06-07 | Outpatient (CLI) | payer OTHER ==
[2017-06-07 12:36] LABS: BASO % 0.3 %; BASO ABS # 0.03 K/uL (0-0.2); COMPLETE YES; EOS % 2.5 %; HEMATOCRIT 32.9 % (37-47); IG% 0.3 %; LYMPH % 19.6 %; LYMPH ABS # 1.78 K/uL (1.2-3.4); MEAN CELL VOLUME 75.6 fL (80-100); MEAN CORPUSCULAR HEMOGLOBIN 24.6 pg (25-34); MEAN CORPUSCULAR HGB CONC 32.5 g/dl (32-36); MEAN PLATELET VOLUME 10.4 fL (7.4-10.4); MONO % 7.5 %; NEUT % 69.8 %; PLATELET COUNT 305 K/uL (130-400); RED BLOOD COUNT 4.35 M/uL (4.2-5.4); WHITE BLOOD COUNT 9.06 K/uL (4.8-10.8)
[2017-06-09 03:42] LABS: CHLAMYDIA TRACH RNA*** NOT DETECTED (NOT DETECTED); GC (NEIS GONORRHOEAE)RNA** NOT DETECTED (NOT DETECTED)
== END | disposition home or self-care (01) ==
LOC: C.LAB1850 09:55
PROVIDERS: ATTEND Obstetrics & Gynecology
DX: Z34.91 Encounter for supervision of normal pregnancy, unspecified, first trimester (principal); Z3A.00 Weeks of gestation of pregnancy not specified

== ENCOUNTER → 2017-07-31 | Outpatient (CLI) | payer OTHER ==
[2017-07-31 15:25] LABS: GTGD 50 Grams
== END | disposition home or self-care (01) ==
LOC: C.LAB1850 12:46
PROVIDERS: ATTEND Obstetrics & Gynecology
DX: Z34.92 Encounter for supervision of normal pregnancy, unspecified, second trimester (principal); Z3A.00 Weeks of gestation of pregnancy not specified

== ENCOUNTER 2017-10-02 13:45 | Emergency (ER) | payer OTHER ==
[~2017-10-02] VITALS: Ht 157.5 cm; Wt 65.0 kg
[2017-10-02 13:48] VITALS: TEMP 37; Ht 157.5 cm; Wt 65.0 kg
[2017-10-02] MEDS ORDERED: SODIUM CHLORIDE 0.9% 1000ML 1,000 ML IV STA ×2 (13:59→16:51)
[2017-10-02] MEDS ORDERED: ONDANSETRON INJ 2 MG/ML 2 ML VIAL IV STA (13:59)
[2017-10-02] MEDS ORDERED: IRON20IN IV (14:08)
--- NOTE | 2017-10-02 14:15 | EMERGENCY ROOM VISIT NOTE ---
History Report prepared by Bassam: Liban Wolfe Under the Supervision of: Dr. Brayan Hubbard M.D. First contact with patient: 13:56 Chief Complaint: VOMITING Stated Complaint: ABDOMINAL CRAMPING, VOMITING, 26 WKS History of Present Illness The patient is a 26 year old female who presents to the Emergency Room with complaints of diffuse abdominal cramping that began about 1 month ago. She rates her pain a 3/10 in severity. She has a past medical history of Crohn's disease, two abdominal procedures including a 22 inch large bowel resection, and is currently 26 weeks with her first . Over this time, the patient has been experiencing what she believes to be one of her Crohn's flares. She has been having less PO intake with nausea, vomiting, and diarrhea. Her episodes of diarrhea and vomiting have been proportional with each other. Two weeks ago, the patient was seen by one of her physicians and was found to have a low iron and hemoglobin at 8.2. She received two Iron transfusions, one last week and one yesterday. Her first transfusion went well, but yesterday she became febrile afterward. She called the snap attacher who did not believe the fever was from the transfusion. She then called her irrigationist designer and was referred to the ER for further evaluation. Today, the patient vomited three times and was unable to keep down solids or liquids. In regard to her , the only complication was an elevated lipase level that was found when the patient was 8 weeks . The cause of this elevation was not found. She denies any abnormal vaginal bleed or any urinary complaints. Source of History: patient Onset: about 1 month Position: abdomen (diffuse) Symptom Intensity: 3/10 Quality: cramping Timing: constant Associated Symptoms: + fevers, + nausea, + vomiting, + diarrhea, No urinary symptoms Note: She denies any abnormal vaginal bleeding. Review of Systems See HPI for pertinent positives & negatives. A total of 10 systems reviewed and were otherwise negative. Past Medical & Surgical Medical Problems: (1) Crohn's disease (2) Elevated lipase Family History Patient reports no known family medical history. Social History Smoking Status: Never Smoker Smokeless Tobacco Use: No Drug Use: none Marital Status: Occupation Status: employed Current/Historical Medications Scheduled Infliximab (Remicade), 1 DOSE INJ q 8 weeks Iron Sucrose (Venofer), 1 DOSE IV WK Ondasetron Odt (Zofran Odt), 4 MG SL Q6H Allergies Coded Allergies: No Known Allergies (Unverified , 10/02/17) Physical Exam Vital Signs Date Time Temp Pulse Resp B/P (MAP) Pulse Ox O2 Delivery O2 Flow Rate FiO2 10/02/17 17:29 107 20 88/57 99 Room Air 10/02/17 16:52 103 25 81/39 99 Room Air 10/02/17 15:45 103 18 99/58 99 Room Air 10/02/17 15:25 101 10/02/17 13:48 37.0 106 16 108/59 98 Room Air Physical Exam GENERAL: Patient is in no acute distress. HEENT: No acute trauma, normocephalic atraumatic, mucous membranes moist, no nasal congestion, no scleral icterus. NECK: No stridor, no adenopathy, no meningismus, trachea is midline. LUNGS: Clear to auscultation bilaterally, no wheeze, no rhonchi, breath sounds equal. HEART: Tachycardic rate with a 2/6 systolic murmur. Regular rhythm ABDOMEN: Soft, nontender, bowel sounds positive, no hernias, no peritonitis. Gravid uterus to above the umbilicus. EXTREMITIES: No cyanosis or edema, full range of motion of all the joints without pain or difficulty, no signs for acute trauma. NEUROLOGIC: Oriented x 3, no acute motor or sensory deficits, no focal weakness. SKIN: No rash, no jaundice, no diaphoresis. Medical Decision & Procedures Laboratory Results 10/02/17 14:25 Red Blood Count 3.79, Mean Corpuscular Volume 74.9, Mean Corpuscular Hemoglobin 23.7, Mean Corpuscular Hemoglobin Concent 31.7, Mean Platelet Volume 10.9, Neutrophils (%) (Auto) 86.6, Lymphocytes (%) (Auto) 4.2, Monocytes (%) (Auto) 7.3, Eosinophils (%) (Auto) 0.6, Basophils (%) (Auto) 0.3, Neutrophils # (Auto) 7.49, Lymphocytes # (Auto) 0.36, Monocytes # (Auto) 0.63, Eosinophils # (Auto) 0.05, Basophils # (Auto) 0.03 10/02/17 14:25 Test 10/02/17 14:25 10/02/17 15:23 White Blood Count 8.65 K/uL (4.8-10.8) Red Blood Count 3.79 M/uL (4.2-5.4) Hemoglobin 9.0 g/dL (12.0-16.0) Hematocrit 28.4 % (37-47) Mean Corpuscular Volume 74.9 fL (80-100) Mean Corpuscular Hemoglobin 23.7 pg (25-34) Mean Corpuscular Hemoglobin Concent 31.7 g/dl (32-36) Platelet Count 203 K/uL (130-400) Mean Platelet Volume 10.9 fL (7.4-10.4) Neutrophils (%) (Auto) 86.6 % Lymphocytes (%) (Auto) 4.2 % Monocytes (%) (Auto) 7.3 % Eosinophils (%) (Auto) 0.6 % Basophils (%) (Auto) 0.3 % Neutrophils # (Auto) 7.49 K/uL (1.4-6.5) Lymphocytes # (Auto) 0.36 K/uL (1.2-3.4) Monocytes # (Auto) 0.63 K/uL (0.11-0.59) Eosinophils # (Auto) 0.05 K/uL (0-0.5) Basophils # (Auto) 0.03 K/uL (0-0.2) RDW Standard Deviation 43.1 fL (36.4-46.3) RDW Coefficient of Variation 18.5 % (11.5-14.5) Immature Granulocyte % (Auto) 1.0 % Immature Granulocyte # (Auto) 0.09 K/uL (0.00-0.02) Anion Gap 9.0 mmol/L (3-11) Est Creatinine Clear Calc Drug Dose 152.2 ml/min Estimated GFR () > 150.0 Estimated GFR (Non- 134.5 BUN/Creatinine Ratio 8.7 (10-20) Calcium Level 8.8 mg/dl (8.5-10.1) Total Bilirubin 0.2 mg/dl (0.2-1) Aspartate Amino Transf (AST/SGOT) 43 U/L (15-37) Alanine Aminotransferase (ALT/SGPT) 40 U/L (12-78) Alkaline Phosphatase 63 U/L (45-117) Total Protein 7.4 gm/dl (6.4-8.2) Albumin 3.0 gm/dl (3.4-5.0) Globulin 4.4 gm/dl (2.5-4.0) Albumin/Globulin Ratio 0.7 (0.9-2) Lipase 393 U/L (73-393) Urine Color YELLOW Urine Appearance CLEAR (CLEAR) Urine pH 5.0 (4.5-7.5) Urine Specific [place] 1.022 (1.000-1.030) Urine Protein NEG (NEG) Urine Glucose (UA) NEG (NEG) Urine Ketones 1+ (NEG) Urine Occult Blood NEG (NEG) Urine Nitrite NEG (NEG) Urine Bilirubin NEG (NEG) Urine Urobilinogen NEG (NEG) Urine Leukocyte Esterase NEG (NEG) Laboratory results reviewed by me. Medications Administered Medications (Trade) Dose Ordered Sig/Renu Route Start Time Stop Time Status Last Admin Dose Admin Sodium Chloride 1,000 ml @ 999 mls/hr Q1H1M STAT IV 10/02/17 13:59 10/02/17 14:59 DC 10/02/17 13:59 999 MLS/HR Ondansetron HCl (Zofran Inj) 4 mg NOW STAT IV 10/02/17 13:59 10/02/17 14:03 DC 10/02/17 15:56 4 MG Sodium Chloride 1,000 ml @ 999 mls/hr Q1H1M STAT IV 10/02/17 16:51 10/02/17 17:51 DC 10/02/17 16:51 999 MLS/HR ED Course 1356: The patient was evaluated in room A12. A complete history and physical exam was performed. 1359: Ordered Zofran Inj 4 mg IV, Sodium Chloride 1000 ml @ 999 mls/hr IV 1435: I discussed the patient's case with the nursing staff of Dr. Roque's office. He is out for this week. They sent the patient here because they were concerned that the patient was dehydrated. 1609: I updated the patient at this time. She is feeling okay. However, nursing staff had difficulty getting her IV started so she is just receiving her fluids. 1651: Ordered Sodium Chloride 1000 ml @ 999 mls/hr IV 1800: Reevaluated the patient. Discussed results and discharge instructions: She verbalized understanding and agreement. The patient is ready for discharge. Medical Decision Differential diagnosis includes but is not limited to dehydration, Crohn's flare , related vomiting, electrolyte imbalance, pancreatitis, and UTI. There is no leukocytosis. The patient is anemic but her hemoglobin has improved compared to previous testing. No significant electrolyte abnormality, kidney failure or hepatitis. No pancreatitis. Urinalysis does not show infection. On exam, the patient was not febrile or toxic. The patient received IV saline, IV Zofran, she feels improved. Her blood pressure is somewhat low but she is completely asymptomatic. I do not think we need to aggressively treat this value. I did speak to the patient's GI service, the patient will be followed as an outpatient. The patient has an appointment already to see adult high school instructor, this is scheduled for next week. The patient is not having vaginal complaints, no discharge, no bleeding. No chest pain. She is comfortable. She will be discharged with hydration, a bland diet, Zofran for nausea. If worsening, she will return. I suspect her vomiting and diarrhea is related to her Crohn's. Medication Reconcilliation Current Medication List: was personally reviewed by me Blood Pressure Screening Patient's blood pressure: Low blood pressure Impression Primary Impression: Dehydration Additional Impressions: Nausea, vomiting, and diarrhea Crohn's disease Scribe Attestation The scribe's documentation has been prepared under my direction and personally reviewed by me in its entirety. I confirm that the note above accurately reflects all work, treatment, procedures, and medical decision making performed by me. Departure Information Dispostion Home / Self-Care Prescriptions Ondasetron Odt (ZOFRAN ODT) 4 Mg Tab 4 MG SL Q6H for Nausea, #10 TAB Prov: Brayan Hubbard M.D. 10/02/17 Referrals No Doctor, Assigned (PCP) Forms HOME CARE DOCUMENTATION FORM, IMPORTANT VISIT INFORMATION Patient Instructions [facility] Additional Instructions zofran 1 tab as needed every 6 hours for persistent nausea/vomiting tylenol for pain rest follow with ob and with GI return for worsening or uncontrolled symptoms Problem Qualifiers
[2017-10-02 14:38] LABS: HEMATOCRIT 28.4 % (37-47); MEAN CELL VOLUME 74.9 fL (80-100); MEAN CORPUSCULAR HEMOGLOBIN 23.7 pg (25-34); MEAN CORPUSCULAR HGB CONC 31.7 g/dl (32-36); MEAN PLATELET VOLUME 10.9 fL (7.4-10.4); PLATELET COUNT 203 K/uL (130-400); RED CELL DISTRIBUTION WIDTH CV 18.5 % (11.5-14.5); RED CELL DISTRIBUTION WIDTH SD 43.1 fL (36.4-46.3); WHITE BLOOD COUNT 8.65 K/uL (4.8-10.8)
[2017-10-02 14:56] LABS: ALT/SGPT 40 U/L (12-78); BLOOD UREA NITROGEN 4 mg/dl (7-18); CALCIUM 8.8 mg/dl (8.5-10.1); CARBON DIOXIDE 21 mmol/L (21-32); GLUCOSE 72 mg/dl (70-99); LIPASE 393 U/L (73-393); POTASSIUM 3.4 mmol/L (3.5-5.1); SODIUM 136 mmol/L (136-145)
[2017-10-02 14:59] LABS: ALKALINE PHOSPHATASE 63 U/L (45-117); AST/SGOT 43 U/L (15-37); TOTAL PROTEIN 7.4 gm/dl (6.4-8.2)
[2017-10-02 15:10] LABS: BASO % 0.3 %; BASO ABS # 0.03 K/uL (0-0.2); EOS % 0.6 %; EOS ABS # 0.05 K/uL (0-0.5); IG# 0.09 K/uL (0.00-0.02); LYMPH % 4.2 %; LYMPH ABS # 0.36 K/uL (1.2-3.4); MONO % 7.3 %; MONO ABS # 0.63 K/uL (0.11-0.59); NEUT % 86.6 %; NEUT ABS # 7.49 K/uL (1.4-6.5)
[2017-10-02] MEDS ORDERED: ONDA4TAB10 SL (17:22)
[2017-10-02 17:29] VITALS: BP 88/57; PULSE 107; O2SAT 99
== END 2017-10-02 17:54 | disposition home or self-care (01) ==
LOC: C.EDB 13:48 → C.EDA 17:54
DX: O99.282 Endocrine, nutritional and metabolic diseases complicating pregnancy, second trimester (principal); E86.0 Dehydration; O99.612 Diseases of the digestive system complicating pregnancy, second trimester; O21.0 Mild hyperemesis gravidarum; K50.90 Crohn's disease, unspecified, without complications; R19.7 Diarrhea, unspecified; Z3A.26 26 weeks gestation of pregnancy; Z79.899 Other long term (current) drug therapy

== ENCOUNTER → 2017-10-22 | Outpatient (CLI) | payer OTHER ==
[~2017-10-22] MED LIST changes: +IRON20IN IV; +ONDA4TAB10 SL; -PYR50 PO
== END | disposition home or self-care (01) ==
LOC: C.LABSPEC 16:15
PROVIDERS: ATTEND Obstetrics & Gynecology
DX: Z34.03 Encounter for supervision of normal first pregnancy, third trimester (principal)

== ENCOUNTER → 2017-11-28 | Outpatient (CLI) | payer OTHER ==
[2017-11-28 13:06] LABS: HEMATOCRIT 31.1 % (37-47); HEMOGLOBIN 10.5 g/dL (12.0-16.0)
== END | disposition home or self-care (01) ==
LOC: C.LAB1850 12:21
PROVIDERS: ATTEND Obstetrics & Gynecology
DX: Z34.03 Encounter for supervision of normal first pregnancy, third trimester (principal)

== ENCOUNTER 2017-12-09 23:15 | Emergency (ER) | payer OTHER ==
[~2017-12-09] VITALS: Ht 157.5 cm; Wt 67.1 kg
[2017-12-09 23:19] VITALS: TEMP 36.8; Ht 157.5 cm; Wt 67.1 kg
[2017-12-09] MEDS ORDERED: ONDANSETRON INJ 2 MG/ML 2 ML VIAL IV STA (23:25)
[2017-12-09] MEDS ORDERED: SODIUM CHLORIDE 0.9% 1000ML 2,000 ML IV STA (23:25)
[2017-12-10 00:03] LABS: BASO % 0.2 %; BASO ABS # 0.02 K/uL (0-0.2); EOS % 1.5 %; EOS ABS # 0.15 K/uL (0-0.5); HEMOGLOBIN 10.1 g/dL (12.0-16.0); IG# 0.04 K/uL (0.00-0.02); LYMPH % 23.7 %; LYMPH ABS # 2.35 K/uL (1.2-3.4); MEAN CELL VOLUME 79.1 fL (80-100); MEAN CORPUSCULAR HEMOGLOBIN 25.8 pg (25-34); MEAN CORPUSCULAR HGB CONC 32.6 g/dl (32-36); MEAN PLATELET VOLUME 10.6 fL (7.4-10.4); MONO % 9.1 %; NEUT % 65.1 %; NEUT ABS # 6.44 K/uL (1.4-6.5); PLATELET COUNT 198 K/uL (130-400); RED CELL DISTRIBUTION WIDTH CV 19.2 % (11.5-14.5); RED CELL DISTRIBUTION WIDTH SD 55.7 fL (36.4-46.3)
[2017-12-10] MEDS ORDERED: METOCLOPRAMIDE HCL INJ 5 MG/ML 2 ML VIAL IV STA (00:16)
[2017-12-10 00:22] LABS: ALBUMIN 2.8 gm/dl (3.4-5.0); ALT/SGPT 17 U/L (12-78); AST/SGOT 17 U/L (15-37); BLOOD UREA NITROGEN 7 mg/dl (7-18); CALCIUM 8.4 mg/dl (8.5-10.1); CARBON DIOXIDE 22 mmol/L (21-32); GLUCOSE 76 mg/dl (70-99); LIPASE 495 U/L (73-393); POTASSIUM 3.7 mmol/L (3.5-5.1); SODIUM 139 mmol/L (136-145)
[2017-12-10 00:24] LABS: ALKALINE PHOSPHATASE 120 U/L (45-117); TOTAL PROTEIN 7.2 gm/dl (6.4-8.2)
--- NOTE | 2017-12-10 01:21 | EMERGENCY ROOM VISIT NOTE ---
History Report prepared by Bassam: Richard Obrien Under the Supervision of: Dr. Jarred Washington D.O. First contact with patient: 23:24 Chief Complaint: NAUSEA Stated Complaint: NAUSEA,VOMITING,CRAMPING 35.5 WKS PREG History of Present Illness The patient is a 26 year old female who presents to the Emergency Room with complaints of persistent nausea and vomiting that she has been experiencing for the past couple of days. The patient is currently 35 weeks and states that she is having difficulty taking anything down. The patient has been admitted previously during this for elevated lipase levels, and her history of Crohn's. The patient denies any vaginal bleeding/discharge recently, and notes that the has been progressing well. Source of History: patient Onset: Couple of days Position: abdomen Quality: other (Nausea/vomiting) Timing: other (persistent) Note: No vaginal discharge. Review of Systems See HPI for pertinent positives & negatives. A total of 10 systems reviewed and were otherwise negative. Past Medical & Surgical Medical Problems: (1) Crohn's disease (2) Elevated lipase Family History Cancer Diabetes mellitus Social History Smoking Status: Never Smoker Drug Use: none Marital Status: Occupation Status: employed Current/Historical Medications Scheduled Infliximab (Remicade), 1 DOSE INJ q 8 weeks Iron Sucrose (Venofer), 1 DOSE IV WK Allergies Coded Allergies: No Known Allergies (Unverified , 12/09/17) Physical Exam Vital Signs Date Time Temp Pulse Resp B/P (MAP) Pulse Ox O2 Delivery O2 Flow Rate FiO2 12/10/17 00:14 76 16 100/61 98 Room Air 12/09/17 23:19 36.8 78 18 115/73 99 Room Air Physical Exam CONSTITUTIONAL/VITAL SIGNS: Reviewed / noted above. GENERAL: Non-toxic in appearance. INTEGUMENTARY: Warm, dry, and [place]. HEAD: Normocephalic. EYES: without scleral icterus or trauma. ENT/OROPHARYNX: clear and moist. LYMPHADENOPATHY/NECK: Is supple without lymphadenopathy or meningismus. RESPIRATORY: Lungs clear and equal. CARDIOVASCULAR: Regular rate and rhythm. GI/ABDOMEN: Gravid abdomen. Nontender. No organomegaly or pulsatile mass. No rebound or guarding. Normal bowel sounds. EXTREMITIES: Warm and well perfused. BACK: No CVA tenderness. NEUROLOGICAL: Intact without focal deficits. PSYCHIATRIC: normal affect. MUSCULOSKELETAL: Normally developed with good muscle tone. Medical Decision & Procedures Laboratory Results 12/09/17 23:45 Red Blood Count 3.92, Mean Corpuscular Volume 79.1, Mean Corpuscular Hemoglobin 25.8, Mean Corpuscular Hemoglobin Concent 32.6, Mean Platelet Volume 10.6, Neutrophils (%) (Auto) 65.1, Lymphocytes (%) (Auto) 23.7, Monocytes (%) (Auto) 9.1, Eosinophils (%) (Auto) 1.5, Basophils (%) (Auto) 0.2, Neutrophils # (Auto) 6.44, Lymphocytes # (Auto) 2.35, Monocytes # (Auto) 0.90, Eosinophils # (Auto) 0.15, Basophils # (Auto) 0.02 12/09/17 23:45 Test 12/09/17 23:45 White Blood Count 9.90 K/uL (4.8-10.8) Red Blood Count 3.92 M/uL (4.2-5.4) Hemoglobin 10.1 g/dL (12.0-16.0) Hematocrit 31.0 % (37-47) Mean Corpuscular Volume 79.1 fL (80-100) Mean Corpuscular Hemoglobin 25.8 pg (25-34) Mean Corpuscular Hemoglobin Concent 32.6 g/dl (32-36) Platelet Count 198 K/uL (130-400) Mean Platelet Volume 10.6 fL (7.4-10.4) Neutrophils (%) (Auto) 65.1 % Lymphocytes (%) (Auto) 23.7 % Monocytes (%) (Auto) 9.1 % Eosinophils (%) (Auto) 1.5 % Basophils (%) (Auto) 0.2 % Neutrophils # (Auto) 6.44 K/uL (1.4-6.5) Lymphocytes # (Auto) 2.35 K/uL (1.2-3.4) Monocytes # (Auto) 0.90 K/uL (0.11-0.59) Eosinophils # (Auto) 0.15 K/uL (0-0.5) Basophils # (Auto) 0.02 K/uL (0-0.2) RDW Standard Deviation 55.7 fL (36.4-46.3) RDW Coefficient of Variation 19.2 % (11.5-14.5) Immature Granulocyte % (Auto) 0.4 % Immature Granulocyte # (Auto) 0.04 K/uL (0.00-0.02) Anion Gap 9.0 mmol/L (3-11) Est Creatinine Clear Calc Drug Dose 154.5 ml/min Estimated GFR () > 150.0 Estimated GFR (Non- 134.5 BUN/Creatinine Ratio 13.9 (10-20) Calcium Level 8.4 mg/dl (8.5-10.1) Total Bilirubin 0.2 mg/dl (0.2-1) Direct Bilirubin < 0.1 mg/dl (0-0.2) Aspartate Amino Transf (AST/SGOT) 17 U/L (15-37) Alanine Aminotransferase (ALT/SGPT) 17 U/L (12-78) Alkaline Phosphatase 120 U/L (45-117) Total Protein 7.2 gm/dl (6.4-8.2) Albumin 2.8 gm/dl (3.4-5.0) Lipase 495 U/L (73-393) Laboratory results as stated above per my review. Medications Administered Medications (Trade) Dose Ordered Sig/Renu Route Start Time Stop Time Status Last Admin Dose Admin Sodium Chloride 2,000 ml @ 999 mls/hr Q2H1M STAT IV 12/09/17 23:25 12/10/17 01:25 DC 12/09/17 23:50 999 MLS/HR Ondansetron HCl (Zofran Inj) 4 mg NOW STAT IV 12/09/17 23:25 12/09/17 23:27 DC 12/09/17 23:50 4 MG ED Course 2325: Previous medical records were reviewed. The patient was evaluated in room A4B. A complete history and physical examination was performed. 2325: Ordered Zofran 4 mg IV, Sodium Chloride 2000 mL @ 999 mL/hr IV. 0016: Ordered Reglan 10 mg IV. 0125: On reevaluation, the patient is resting in bed. I discussed the results and findings with the patient. She verbalized agreement of the treatment plan. The patient was discharged home. Medical Decision Differential diagnosis: Etiologies such as gastroenteritis, food borne illness, infections, appendicitis , diverticulitis, inflammatory bowel disease, obstruction, GI bleed, biliary pathology, as well as others were entertained. This is a 26-year-old female who presents to the ED with a chief complaint of nausea and vomiting. Patient reports that she is about 35 weeks . She states that for the past 3 days she has been nauseated and vomiting at least 2 times per day. She also reports a history of Crohn's disease. She does not report any diarrhea or bloody stools. She denies any abnormal vaginal discharge or bleeding. The patient was seen here previously for similar symptoms. She does report a history of anemia for which she takes iron. Her physical exam did not reveal any focal abdominal tenderness. She has a gravid abdomen. Her exam is otherwise unremarkable. His membranes were moist. Her CBC reveals some mild anemia with a hemoglobin of 10.1. Lipase was 495. Chemistry panel was otherwise unremarkable. She was treated with 2 L normal saline IV as well as IV Zofran and IV Reglan. Her symptoms improved she was feeling better. She was felt to be stable for discharge. Medication Reconcilliation Current Medication List: was personally reviewed by me Blood Pressure Screening Patient's blood pressure: Normal blood pressure Impression Primary Impression: Nausea & vomiting Additional Impression: Third trimester Scribe Attestation The scribe's documentation has been prepared under my direction and personally reviewed by me in its entirety. I confirm that the note above accurately reflects all work, treatment, procedures, and medical decision making performed by me. Departure Information Dispostion Home / Self-Care Referrals No Doctor, Assigned (PCP) Patient Instructions My [facility] Additional Instructions Follow-up with your doctor for further care and evaluation in 1-2 days if symptoms persist. Return to the emergency department for worsening or new symptoms or any concerns. You have been examined and treated today on an emergency basis only. This is not a substitute for, or an effort to provide, complete comprehensive medical care. It is impossible to recognize and treat all injuries or illnesses in a single emergency department visit. It is therefore important that you follow up closely with your doctor. Call as soon as possible for an appointment. Problem Qualifiers
[2017-12-10 01:25] VITALS: BP 109/65; PULSE 82; O2SAT 98
== END 2017-12-10 01:25 | disposition home or self-care (01) ==
LOC: C.EDB 23:16 → C.EDA 12-10 01:25
DX: O21.2 Late vomiting of pregnancy (principal); O99.013 Anemia complicating pregnancy, third trimester; O99.613 Diseases of the digestive system complicating pregnancy, third trimester; Z3A.35 35 weeks gestation of pregnancy; D64.9 Anemia, unspecified; K50.90 Crohn's disease, unspecified, without complications

== ENCOUNTER → 2017-12-20 | Outpatient (CLI) | payer OTHER ==
[~2017-12-20] MED LIST changes: -ONDA4TAB10 SL
== END | disposition home or self-care (01) ==
LOC: C.LABSPEC 15:41
PROVIDERS: ATTEND Obstetrics & Gynecology
DX: Z34.03 Encounter for supervision of normal first pregnancy, third trimester (principal)

== ENCOUNTER 2017-12-29 04:43 | Outpatient (CLI) | payer OTHER ==
[~2017-12-29] VITALS: Ht 157.5 cm; Wt 65.8 kg
[2017-12-29] MEDS ORDERED: PRENTAB26 PO (05:27)
[2017-12-29 05:29] VITALS: Ht 157.5 cm; Wt 65.8 kg
[2017-12-29] MEDS ORDERED: LACTATED RINGER'S 1000ML 1,000 ML IV ONE (05:43)
[2017-12-29] MEDS ORDERED: ONDANSETRON INJ 2 MG/ML 2 ML VIAL IV PRN (05:45)
[2017-12-29] MEDS ORDERED: ONDANSETRON 4 MG TAB PO PRN (05:45)
== END 2017-12-29 07:48 ==
LOC: C.OPB 04:43 → C.LD 04:47 → C.OPB 07:48
PROVIDERS: ATTEND Obstetrics & Gynecology
DX: O99.89 Other specified diseases and conditions complicating pregnancy, childbirth and the puerperium (principal); R11.2 Nausea with vomiting, unspecified; R19.7 Diarrhea, unspecified; K50.90 Crohn's disease, unspecified, without complications; Z3A.38 38 weeks gestation of pregnancy

== ENCOUNTER → 2018-04-02 | Outpatient (CLI) | payer OTHER ==
[~2018-04-02] MED LIST changes: +EVENCAP6; -IRON20IN IV; +OXYC-57 PO; +PEDICHW34
== END | disposition home or self-care (01) ==
LOC: C.LAB1850 15:43
PROVIDERS: ATTEND Obstetrics & Gynecology
DX: N91.1 Secondary amenorrhea (principal)

== ENCOUNTER → 2018-04-02 | Outpatient (CLI) | payer OTHER | END | disposition home or self-care (01) | LOC: C.PATHSPEC 17:33 | PROVIDERS: ATTEND Obstetrics & Gynecology | DX: N87.0 Mild cervical dysplasia (principal); R87.612 Low grade squamous intraepithelial lesion on cytologic smear of cervix (LGSIL); N72 Inflammatory disease of cervix uteri ==